=== PATIENT | male | born 1960 | race Caucasian/White ===

== ENCOUNTER 2017-03-15 12:10 | Emergency (ER) | payer OTHER ==
[~2017-03-15] VITALS: Ht 175.3 cm; Wt 79.3 kg
[2017-03-15 12:13] VITALS: TEMP 36.4; Ht 175.3 cm; Wt 79.3 kg
[2017-03-15] MEDS ORDERED: MoRPHine SULFATE 10 MG/ML CARP/VIAL IV STA ×2 (12:35→13:11)
[2017-03-15] MEDS ORDERED: ONDANSETRON INJ 2 MG/ML 2 ML VIAL IV STA (12:35)
[2017-03-15] MEDS ORDERED: SODIUM CHLORIDE 0.9% 1000ML 1,000 ML IV STA (12:35)
--- NOTE | 2017-03-15 12:43 | EMERGENCY ROOM VISIT NOTE ---
History Report prepared by Lisa: Whitley Ware Under the Supervision of: Dr. Elias Bundy M.D. First contact with patient: 12:30 Chief Complaint: KIDNEY STONE Stated Complaint: KIDNEY STONE History of Present Illness The patient is a 56 year old male who presents to the Emergency Room with complaints of sudden left-sided flank pain beginning this morning. He rates his pain at a 5/10. The patient states that he has had kidney stones before and that his symptoms today feel like one.The patient states that he has never had one on the left side before, but states that he had one on his right side 3 years ago. He denies having fevers, urinary burning, and rashes. He also denies a history of abdominal surgeries. Source of History: patient Onset: this morning Position: other (left-sided flank ) Symptom Intensity: rated at a 5/10 Timing: other (sudden ) Associated Symptoms: No fevers, No urinary symptoms (urinary burning ), No rash Review of Systems See HPI for pertinent positives & negatives. A total of 10 systems reviewed and were otherwise negative. Past Medical & Surgical Medical Problems: (1) Kidney stone Family History No pertinent family history stated. Social History Smoking Status: Never Smoker Occupation Status: employed Current/Historical Medications No Active Prescriptions or Reported Meds Allergies Coded Allergies: Penicillins (Unverified Adverse Reaction, Unknown, VOMITING, 03/15/17) Physical Exam Vital Signs Date Time Temp Pulse Resp B/P (MAP) Pulse Ox O2 Delivery O2 Flow Rate FiO2 03/15/17 14:25 51 18 130/91 95 03/15/17 13:07 52 16 141/81 98 Room Air 03/15/17 12:13 36.4 87 20 179/99 96 Room Air Physical Exam GENERAL: Patient is uncomfortable appearing and in moderate distress. HEENT: No acute trauma, normocephalic atraumatic, mucous membranes moist, no nasal congestion, no scleral icterus. NECK: No stridor, no adenopathy, no meningismus, trachea is midline. LUNGS: No dyspnea. Clear to auscultation and equal bilaterally. No wheeze, no rhonchi. HEART: Regular rate and rhythm. No murmurs, rubs, gallops appreciated. ABDOMEN: Soft, vague left lower quadrant tenderness to palpation, bowel sounds positive, no masses appreciated, no peritonitis. BACK: No midline tenderness, no CVA tenderness EXTREMITIES: Normal motion all extremities, no cyanosis, no edema. NEUROLOGIC: Alert and oriented, no acute motor or sensory deficits, no focal weakness, cranial nerves grossly intact. SKIN: No rash, no jaundice, no diaphoresis. Medical Decision & Procedures ER Provider Diagnostic Interpretation: Radiology results and stated below per my review and radiologist interpretation: ABD/PELVIS WITHOUT FOR STONE HISTORY: 56 years-old Male left flank pain acute left-sided flank pain. Initial exam. COMPARISON: None available TECHNIQUE: Multiple axial CT images of the abdomen and pelvis were obtained without the use of contrast. A dose lowering technique was used consistent with the principals of SWATHI. FINDINGS: Lung bases are clear. No pneumoperitoneum identified. Imaged inferior cardiac chambers are unremarkable. Diffuse fatty infiltration of the liver. No intrahepatic biliary ductal dilation. Minimal layering gallstones without evidence of acute cholecystitis. The spleen and adrenal glands are unremarkable. There is advanced inferior atrophy of the pancreas with fatty replacement. Mild nonspecific right perinephric infiltration with otherwise unremarkable. The right kidney and right ureter. Nonobstructing 6 x 5 mm calculus of the inferior pole left kidney. There is a circumscribed low attenuating 2.3 x 1.8 cm lesion of the lateral aspect interpolar left kidney suggesting renal cyst. There is moderate left-sided hydroureteronephrosis secondary to a 5 x 5 x 5 mm calculus of the mid left ureter at the level of the L4-L5 disc space. Urinary bladder is partially collapsed. Prostate is mildly prominent containing central coarse calcifications. There is asymmetric prominence with calcifications in the region of the left seminal vesicle. Mild atherosclerotic plaquing of the abdominal aorta. No bulky adenopathy. There is no bowel obstruction. A few scattered air-fluid levels are noted within nondilated bowel midabdomen, likely incidental. The majority of the large bowel is collapsed. A few scattered noninflamed colonic diverticula are noted. The appendix appears mildly prominent and its tip without evidence of acute appendicitis. Soft tissues are unremarkable. The bones appear intact. IMPRESSION: 1. Moderate left-sided hydroureteronephrosis secondary to a 5 x 5 x 5 mm calculus of the mid left ureter at the level of the L4-L5 disc space. Additionally, there is a 6 mm nonobstructing calculus of the inferior pole left kidney. 2. Cholelithiasis without CT evidence of acute cholecystitis. 3. Fatty infiltration of the liver. 4. Additional findings as above. The above report was generated using voice recognition software. It may contain grammatical, syntax or spelling errors. Electronically signed by: Jose Juan House M.D. 03/15/2017 1:31 PM Dictated Date/Time: 03/15/2017 1:23 PM Laboratory Results 03/15/17 12:30 Red Blood Count 5.56, Mean Corpuscular Volume 91.9, Mean Corpuscular Hemoglobin 31.8, Mean Corpuscular Hemoglobin Concent 34.6, Mean Platelet Volume 12.0, Neutrophils (%) (Auto) 78.2, Lymphocytes (%) (Auto) 13.4, Monocytes (%) (Auto) 8.1, Eosinophils (%) (Auto) 0.1, Basophils (%) (Auto) 0.1, Neutrophils # (Auto) 6.70, Lymphocytes # (Auto) 1.15, Monocytes # (Auto) 0.69, Eosinophils # (Auto) 0.01, Basophils # (Auto) 0.01 03/15/17 12:30 Test 03/15/17 12:30 White Blood Count 8.57 K/uL (4.8-10.8) Red Blood Count 5.56 M/uL (4.7-6.1) Hemoglobin 17.7 g/dL (14.0-18.0) Hematocrit 51.1 % (42-52) Mean Corpuscular Volume 91.9 fL (80-100) Mean Corpuscular Hemoglobin 31.8 pg (25-34) Mean Corpuscular Hemoglobin Concent 34.6 g/dl (32-36) Platelet Count 144 K/uL (130-400) Mean Platelet Volume 12.0 fL (7.4-10.4) Neutrophils (%) (Auto) 78.2 % Lymphocytes (%) (Auto) 13.4 % Monocytes (%) (Auto) 8.1 % Eosinophils (%) (Auto) 0.1 % Basophils (%) (Auto) 0.1 % Neutrophils # (Auto) 6.70 K/uL (1.4-6.5) Lymphocytes # (Auto) 1.15 K/uL (1.2-3.4) Monocytes # (Auto) 0.69 K/uL (0.11-0.59) Eosinophils # (Auto) 0.01 K/uL (0-0.5) Basophils # (Auto) 0.01 K/uL (0-0.2) RDW Standard Deviation 44.2 fL (36.4-46.3) RDW Coefficient of Variation 13.1 % (11.5-14.5) Immature Granulocyte % (Auto) 0.1 % Immature Granulocyte # (Auto) 0.01 K/uL (0.00-0.02) Urine Color DK YELLOW Urine Appearance CLOUDY (CLEAR) Urine pH 5.0 (4.5-7.5) Urine Specific [place] 1.027 (1.000-1.030) Urine Protein NEG (NEG) Urine Glucose (UA) NEG (NEG) Urine Ketones NEG (NEG) Urine Occult Blood 3+ (NEG) Urine Nitrite NEG (NEG) Urine Bilirubin NEG (NEG) Urine Urobilinogen NEG (NEG) Urine Leukocyte Esterase TRACE (NEG) Urine WBC (Auto) 1-5 /hpf (0-5) Urine RBC (Auto) 0-4 /hpf (0-4) Urine Hyaline Casts (Auto) /lpf (0-5) Urine Epithelial Cells (Auto) 0-5 /lpf (0-5) Urine Bacteria (Auto) NEG (NEG) Urine Crystals CALCIUM OXALATE (NONE Urine Mucus PRESENT (NONE PRSENT) Anion Gap 8.0 mmol/L (3-11) Est Creatinine Clear Calc Drug Dose 88.0 ml/min Estimated GFR () 103.4 Estimated GFR (Non- 89.3 BUN/Creatinine Ratio 13.9 (10-20) Calcium Level 8.5 mg/dl (8.5-10.1) Total Bilirubin 0.8 mg/dl (0.2-1) Direct Bilirubin 0.2 mg/dl (0-0.2) Aspartate Amino Transf (AST/SGOT) 28 U/L (15-37) Alanine Aminotransferase (ALT/SGPT) 58 U/L (12-78) Alkaline Phosphatase 103 U/L (45-117) Total Protein 7.6 gm/dl (6.4-8.2) Albumin 4.1 gm/dl (3.4-5.0) Lipase 36 U/L (73-393) Laboratory results as reviewed by me. Medications Administered Medications (Trade) Dose Ordered Sig/Michelle Route Start Time Stop Time Status Last Admin Dose Admin Sodium Chloride 1,000 ml @ 999 mls/hr Q1H1M STAT IV 03/15/17 12:35 03/15/17 13:35 DC 03/15/17 12:45 999 MLS/HR Ondansetron HCl (Zofran Inj) 4 mg NOW STAT IV 03/15/17 12:35 03/15/17 12:37 DC 03/15/17 12:46 4 MG Morphine Sulfate (MoRPHine SULFATE INJ) 8 mg NOW STAT IV 03/15/17 12:35 03/15/17 12:37 DC 03/15/17 12:46 8 MG Morphine Sulfate (MoRPHine SULFATE INJ) 10 mg NOW STAT IV 03/15/17 13:11 03/15/17 13:12 DC 03/15/17 13:15 10 MG Tamsulosin HCl (Flomax Cap) 0.4 mg NOW ONCE PO 03/15/17 14:00 03/15/17 14:01 DC 03/15/17 14:03 0.4 MG Hydromorphone HCl (Dilaudid Inj) 1 mg NOW STAT IV 03/15/17 13:49 03/15/17 13:50 DC 03/15/17 14:03 1 MG Ketorolac Tromethamine (Toradol Inj) 30 mg NOW STAT IV 03/15/17 14:04 03/15/17 14:05 DC 03/15/17 14:46 30 MG ED Course 1230: The patient was evaluated in room A4B. A complete history and physical exam was performed. 1235: Ordered Morphine Sulfate 8 mg IV, Ondansetron HCl 4 mg IV, Sodium Chloride 1,000 ml @ 999 mls/hr IV. 1311: Ordered Morphine Sulfate 10 mg IV. 1349: Ordered Dilaudid Inj 1 mg IV. 1350: The patient states that his pain is an 8/10 and that it is unbearable. He denies nausea. 1355: I discussed the patient's case with Dr. Shields. He is agreeable with 30 mg IV of Toradol. 1400: Ordered Tamsulosin HCl 0.4 mg PO. 1404: Ordered Toradol Inj 30 mg IV. 1430: The patient at first refused the Toradol and said that he wants to be admitted. Now he is agreeable to the Toradol. 1500: The patient is feeling better and would like to go home. 1503: Reevaluated the patient. Discussed results and discharge instructions: He verbalized understanding and agreement. The patient is ready for discharge. Medical Decision Differential: Renal Colic, Pyelonephritis, Hydronephrosis, Appendicitis, Diverticulitis, Retroperitoneal Bleed/Infection, Aortic Pathology, MSK, Neurologic Pathology, amongst other pathologies entertained. 56 yr old male with severe left flank pain for the previous few hours and periodic dry heaves. He is quite uncomfortable and thus IV narcotics initiated along with IV fluids. Labs OK and UA without infection. CT with moderate sized left mid ureteral stone with hydro. Requiring multiple rounds narcotics. Reviewed with Uro who agree with trialing Toradol in this patient. Patient feeling much improved and willing to try outpatient treatment. I discussed observation status which he would prefer to avoid. Patient stable and feeling better at discharge. Discussed risks/restrictions of narcotics. [place] Drug Monitoring Program Search Results: patient reviewed within database, no issues identified Medication Reconcilliation Current Medication List: was personally reviewed by me Blood Pressure Screening Patient's blood pressure: Elevated blood pressure Blood pressure disposition: Elevated BP felt to be situational Consults Time Called: 1350 Consulting Physician: Dr. Shields Returned Call: 1356 I discussed the patient's case with Dr. Shields. He is agreeable with 30 mg IV of Toradol. Impression Primary Impression: Left ureteral calculus Additional Impression: Hydronephrosis of left kidney Scribe Attestation The scribe's documentation has been prepared under my direction and personally reviewed by me in its entirety. I confirm that the note above accurately reflects all work, treatment, procedures, and medical decision making performed by me. Departure Information Dispostion Home / Self-Care Prescriptions No Active Prescriptions or Reported Meds Referrals Larry Shields MD Forms HOME CARE DOCUMENTATION FORM, IMPORTANT VISIT INFORMATION Patient Instructions Kidney Stones Expectant Therapy, My [facility] Additional Instructions You have received a narcotic pain medication prescription. These medications may cause drowsiness and should not be used with other sedative medications. Do not drive, drink alcohol, perform dangerous activities, nor make important decisions after taking these medications. terminologist use or inappropriate use may lead to addiction. Problem Qualifiers
[2017-03-15 12:51] LABS: URINE APPEARANCE CLOUDY (CLEAR); URINE BILIRUBIN NEG (NEG); URINE COLOR DK YELLOW; URINE EPITHELIAL CELL AUTO 0-5 /lpf (0-5); URINE NITRITE NEG (NEG); URINE SPECIFIC GRAVITY 1.027 (1.000-1.030); UROBILINOGEN NEG (NEG); ZZUR CULT IF INDIC CLEAN CATCH NO
[2017-03-15 12:57] LABS: BASO % 0.1 %; BASO ABS # 0.01 K/uL (0-0.2); COMPLETE YES; EOS % 0.1 %; HEMATOCRIT 51.1 % (42-52); IG% 0.1 %; LYMPH % 13.4 %; LYMPH ABS # 1.15 K/uL (1.2-3.4); MEAN CELL VOLUME 91.9 fL (80-100); MEAN CORPUSCULAR HEMOGLOBIN 31.8 pg (25-34); MEAN CORPUSCULAR HGB CONC 34.6 g/dl (32-36); MONO % 8.1 %; NEUT % 78.2 %; PLATELET COUNT 144 K/uL (130-400); RED BLOOD COUNT 5.56 M/uL (4.7-6.1); WHITE BLOOD COUNT 8.57 K/uL (4.8-10.8)
[2017-03-15 13:11] LABS: MANUAL MICROSCOPIC REQUIRED? NO; REVIEW REQ? YES
[2017-03-15 13:13] LABS: BUN/CREATININE RATIO 13.9 (10-20); CALCIUM 8.5 mg/dl (8.5-10.1); CREATININE 0.96 mg/dl (0.60-1.40); POTASSIUM 3.7 mmol/L (3.5-5.1)
--- NOTE | 2017-03-15 13:33 | DIAGNOSTIC IMAGING REPORT ---
ABD/PELVIS WITHOUT FOR STONE HISTORY: 56 years-old Male left flank pain acute left-sided flank pain. Initial exam. COMPARISON: None available TECHNIQUE: Multiple axial CT images of the abdomen and pelvis were obtained without the use of contrast. A dose lowering technique was used consistent with the principals of SWATHI. FINDINGS: Lung bases are clear. No pneumoperitoneum identified. Imaged inferior cardiac chambers are unremarkable. Diffuse fatty infiltration of the liver. No intrahepatic biliary ductal dilation. Minimal layering gallstones without evidence of acute cholecystitis. The spleen and adrenal glands are unremarkable. There is advanced inferior atrophy of the pancreas with fatty replacement. Mild nonspecific right perinephric infiltration with otherwise unremarkable. The right kidney and right ureter. Nonobstructing 6 x 5 mm calculus of the inferior pole left kidney. There is a circumscribed low attenuating 2.3 x 1.8 cm lesion of the lateral aspect interpolar left kidney suggesting renal cyst. There is moderate left-sided hydroureteronephrosis secondary to a 5 x 5 x 5 mm calculus of the mid left ureter at the level of the L4-L5 disc space. Urinary bladder is partially collapsed. Prostate is mildly prominent containing central coarse calcifications. There is asymmetric prominence with calcifications in the region of the left seminal vesicle. Mild atherosclerotic plaquing of the abdominal aorta. No bulky adenopathy. There is no bowel obstruction. A few scattered air-fluid levels are noted within nondilated bowel midabdomen, likely incidental. The majority of the large bowel is collapsed. A few scattered noninflamed colonic diverticula are noted. The appendix appears mildly prominent and its tip without evidence of acute appendicitis. Soft tissues are unremarkable. The bones appear intact. IMPRESSION: 1. Moderate left-sided hydroureteronephrosis secondary to a 5 x 5 x 5 mm calculus of the mid left ureter at the level of the L4-L5 disc space. Additionally, there is a 6 mm nonobstructing calculus of the inferior pole left kidney. 2. Cholelithiasis without CT evidence of acute cholecystitis. 3. Fatty infiltration of the liver. 4. Additional findings as above. The above report was generated using voice recognition software. It may contain grammatical, syntax or spelling errors. Electronically signed by: Jose Juan House M.D. 03/15/2017 1:31 PM Dictated Date/Time: 03/15/2017 1:23 PM
[2017-03-15] MEDS ORDERED: HYDROmorphone INJ 1 MG/ML SYR IV STA (13:49)
[2017-03-15] MEDS ORDERED: TAMSULOSIN HCL 0.4 MG CAP PO ONE (14:00)
[2017-03-15] MEDS ORDERED: KETOROLAC TROMETHAMINE 30 MG/ML VIAL IV STA (14:04)
[2017-03-15 14:53] LABS: URINE MUCUS PRESENT (NONE PRSENT)
[2017-03-15] MEDS ORDERED: TAMS0.4C38 PO (15:14)
[2017-03-15] MEDS ORDERED: OXYC1TAB3 PO (15:14)
[2017-03-15] MEDS ORDERED: ONDA4TAB10 SL (15:14)
[2017-03-15] MEDS ORDERED: OXYCODONE IR HOME PACK PO ONE (15:15)
[2017-03-15] MEDS ORDERED: ONDANSETRON HOME PACK 4MG OD TAB PO ONE (15:15)
[2017-03-15 15:23] VITALS: BP 132/87; PULSE 57; O2SAT 96
== END 2017-03-15 15:25 | disposition home or self-care (01) ==
LOC: C.EDB 12:13 → C.EDA 15:25
DX: N20.1 Calculus of ureter (principal); N13.30 Unspecified hydronephrosis; Z87.442 Personal history of urinary calculi

== ENCOUNTER 2017-03-24 21:05 | Emergency (ER) | payer OTHER ==
[~2017-03-24] VITALS: Ht 175.3 cm; Wt 78.4 kg
[~2017-03-24 21:05] MED LIST: ONDA4TAB10 SL; OXYC1TAB3 PO; TAMS0.4C38 PO
[2017-03-24 21:08] VITALS: TEMP 37; Ht 175.3 cm; Wt 78.4 kg
[2017-03-24] MEDS ORDERED: KETOROLAC TROMETHAMINE 30 MG/ML VIAL IV STA (21:17)
[2017-03-24] MEDS ORDERED: ONDANSETRON INJ 2 MG/ML 2 ML VIAL IV STA (21:17)
[2017-03-24] MEDS ORDERED: MoRPHine SULFATE 10 MG/ML CARP/VIAL IV STA (21:17)
[2017-03-24] MEDS ORDERED: HYDR-5688 PO (21:36)
[2017-03-24] MEDS ORDERED: PHEN-876 PO (21:36)
[2017-03-24] MEDS ORDERED: OXYC1TAB3 PO (21:37)
[2017-03-24 21:43] LABS: BASO % 0.1 %; BASO ABS # 0.01 K/uL (0-0.2); COMPLETE YES; EOS % 0.4 %; IG% 0.2 %; LYMPH % 13.3 %; LYMPH ABS # 1.31 K/uL (1.2-3.4); MEAN CELL VOLUME 91.2 fL (80-100); MEAN CORPUSCULAR HGB CONC 35.1 g/dl (32-36); MEAN PLATELET VOLUME 11.4 fL (7.4-10.4); MONO % 14.4 %; NEUT % 71.6 %; PLATELET COUNT 157 K/uL (130-400); RED BLOOD COUNT 5.37 M/uL (4.7-6.1); WHITE BLOOD COUNT 9.86 K/uL (4.8-10.8)
[2017-03-24 21:47] LABS: MANUAL MICROSCOPIC REQUIRED? YES; REVIEW REQ? NO; URINE APPEARANCE SLIGHTLY CLOUDY (CLEAR); URINE COLOR ORANGE
[2017-03-24 21:48] LABS: SULFASALICYLIC ACID NEG (NEG); URINE SPECIFIC GRAVITY 1.019 (1.000-1.030)
[2017-03-24 21:51] LABS: URINE BACTERIA 1+ (NEG); URINE MUCUS PRESENT (NONE PRSENT); URINE WHITE BLOOD CELL CAST 0-3 /lpf (0); ZZUR CULT IF INDIC CLEAN CATCH YES
[2017-03-24 22:12] LABS: BUN/CREATININE RATIO 11.3 (10-20); CALCIUM 8.6 mg/dl (8.5-10.1); CREATININE 2.03 mg/dl (0.60-1.40); POTASSIUM 4.3 mmol/L (3.5-5.1)
--- NOTE | 2017-03-24 22:18 | DIAGNOSTIC IMAGING REPORT ---
CT OF THE ABDOMEN AND PELVIS WITHOUT CONTRAST, STONE PROTOCOL CLINICAL HISTORY: Left flank pain and hematuria. Recent lithotripsy. COMPARISON STUDY: CT of the abdomen and pelvis March 15, 2017. TECHNIQUE: Helical axial images of the abdomen and pelvis were obtained without IV or oral contrast according to renal stone protocol. A dose lowering technique was utilized adhering to the principles of ALARA. FINDINGS: Moderate left hydroureteronephrosis is noted. A 4 mm calculus fragment at the left ureterovesical junction is noted. There is also a 3 mm fragment within the distal left ureter. Overall, the calculus burden is diminished since exam of March 15, 2017. This mild left perinephric infiltration. A water attenuation left renal lesion is suboptimally assessed on this unenhanced exam but this favors a cyst. There is marked fatty infiltration of the liver. Tiny gallstone is noted within the gallbladder. There is no pericholecystic infiltration. There is marked central atrophy of the pancreas. The appendix is mildly dilated without periappendiceal infiltration. The mid to distal aspect of the appendix appears fluid-filled. No lymphadenopathy is present within the abdomen or the pelvis. There are no suspicious osseous lesions. IMPRESSION: 1. Moderate left hydroureteronephrosis due to a 4 mm calculus fragment at the left ureterovesical junction. Additional 3 mm distal left ureteral calculus fragment. Overall, calculus burden diminished since exam of March 15, 2017 following lithotripsy. 2. Mildly dilated, fluid filled appendiceal tip without evidence of acute appendicitis. This may represent a normal finding however a mucocele or other appendiceal lesion could have this imaging appearance. A nonemergent surgical consultation is recommended. Electronically signed by: Lucien Roe M.D. 03/24/2017 10:17 PM Dictated Date/Time: 03/24/2017 10:05 PM
[2017-03-24] MEDS ORDERED: SODIUM CHLORIDE 0.9% 1000ML 1,000 ML IV STA (22:32)
[2017-03-24] MEDS ORDERED: CIPR-255 PO (22:41)
[2017-03-24] MEDS ORDERED: TAMS0.4C38 PO (22:41)
[2017-03-24] MEDS ORDERED: CIPROFLOXACIN 500 MG TAB PO STA (22:56)
[2017-03-24] MEDS ORDERED: MoRPHine SULFATE 4 MG/ML 1 ML CARP\\VIAL IV STA (23:16)
--- NOTE | 2017-03-24 23:28 | EMERGENCY ROOM VISIT NOTE ---
History First contact with patient: 21:11 Chief Complaint: FLANK PAIN Stated Complaint: LEFT KIDNEY PAIN- HX STONES History of Present Illness The patient is a 56 year old male who presents to the Emergency Room with complaints of severe left flank pain. The patient states that he had lithotripsy performed by Dr. Vieira on Thursday on 2 different stones one in the left ureter and 1 in the left kidney. The patient states at 3 PM today he developed this severe left flank pain with associated nausea and had one episode of vomiting. The patient also states that he has gross hematuria. He states there were little red chunks in his urine. The patient denies any dysuria, frequency or urgency. The patient has been taking his pain medication without any relief of the pain. He is also taking Flomax daily. He has not taken his oxybutynin for urinary spasms. The patient denies any fever. Review of Systems 10 system review was performed and was negative unless stated otherwise history of present illness. Past Medical/Surgical History Medical Problems: (1) Kidney stone Social History Smoking Status: Never Smoker Housing Status: lives with significant other Occupation Status: employed Current/Historical Medications Scheduled Ciprofloxacin Hcl (Cipro), 500 MG PO BID Tamsulosin Hcl (Flomax), 0.4 MG PO DAILY Tamsulosin Hcl (Flomax), 0.4 MG PO DAILY Scheduled PRN Hydrocodone/Acetaminophen 5MG/325MG (Starke 5MG/325MG), 1 TABLET PO Q6 PRN for Pain Oxycodone Immediate Rel Tab (Roxicodone Ir), 5 MG PO Q6H PRN for Pain Phenazopyridine HCl (Pyridium), 200 MG PO TID PRN for Bladder pain Physical Exam Vital Signs Date Time Temp Pulse Resp B/P (MAP) Pulse Ox O2 Delivery O2 Flow Rate FiO2 03/24/17 21:08 37.0 92 18 156/97 95 Room Air Physical Exam GENERAL: 56-year-old male appears uncomfortable secondary to flank pain. MENTAL Status: Alert and oriented 3. MOUTH: Mucosa is slightly dry. NECK: Supple, no lymphadenopathy noted. No carotid bruits noted. LUNGS: Clear auscultation without wheezes rales or rhonchi. CARDIAC: Regular rate and rhythm without murmur. Pulses is full and equal throughout. BACK: No CVA tenderness noted. ABDOMEN: Positive bowel sounds all 4 quadrants. Soft, tenderness palpation in the left lower quadrant otherwise nontender to palpation without organomegaly or masses. EXTREMITIES: No cyanosis or edema noted. Medical Decision & Procedures ER Provider Diagnostic Interpretation: CT OF THE ABDOMEN AND PELVIS WITHOUT CONTRAST, STONE PROTOCOL CLINICAL HISTORY: Left flank pain and hematuria. Recent lithotripsy. COMPARISON STUDY: CT of the abdomen and pelvis March 15, 2017. TECHNIQUE: Helical axial images of the abdomen and pelvis were obtained without IV or oral contrast according to renal stone protocol. A dose lowering technique was utilized adhering to the principles of ALARA. FINDINGS: Moderate left hydroureteronephrosis is noted. A 4 mm calculus fragment at the left ureterovesical junction is noted. There is also a 3 mm fragment within the distal left ureter. Overall, the calculus burden is diminished since exam of March 15, 2017. This mild left perinephric infiltration. A water attenuation left renal lesion is suboptimally assessed on this unenhanced exam but this favors a cyst. There is marked fatty infiltration of the liver. Tiny gallstone is noted within the gallbladder. There is no pericholecystic infiltration. There is marked central atrophy of the pancreas. The appendix is mildly dilated without periappendiceal infiltration. The mid to distal aspect of the appendix appears fluid-filled. No lymphadenopathy is present within the abdomen or the pelvis. There are no suspicious osseous lesions. IMPRESSION: 1. Moderate left hydroureteronephrosis due to a 4 mm calculus fragment at the left ureterovesical junction. Additional 3 mm distal left ureteral calculus fragment. Overall, calculus burden diminished since exam of March 15, 2017 following lithotripsy. 2. Mildly dilated, fluid filled appendiceal tip without evidence of acute appendicitis. This may represent a normal finding however a mucocele or other appendiceal lesion could have this imaging appearance. A nonemergent surgical consultation is recommended. Electronically signed by: Lucien Roe M.D. 03/24/2017 10:17 PM Dictated Date/Time: 03/24/2017 10:05 PM Laboratory Results 03/24/17 21:35 Red Blood Count 5.37, Mean Corpuscular Volume 91.2, Mean Corpuscular Hemoglobin 32.0, Mean Corpuscular Hemoglobin Concent 35.1, Mean Platelet Volume 11.4, Neutrophils (%) (Auto) 71.6, Lymphocytes (%) (Auto) 13.3, Monocytes (%) (Auto) 14.4, Eosinophils (%) (Auto) 0.4, Basophils (%) (Auto) 0.1, Neutrophils # (Auto ) 7.06, Lymphocytes # (Auto) 1.31, Monocytes # (Auto) 1.42, Eosinophils # (Auto ) 0.04, Basophils # (Auto) 0.01 03/24/17 21:35 Test 03/24/17 21:25 03/24/17 21:35 Urine Color ORANGE Urine Appearance SLIGHTLY CLOUDY (CLEAR) Urine pH (4.5-7.5) Urine Specific Stanley 1.019 (1.000-1.030) Urine Protein NEG (NEG) Urine Glucose (UA) (NEG) Urine Ketones (NEG) Urine Occult Blood (NEG) Urine Nitrite (NEG) Urine Bilirubin (NEG) Urine Urobilinogen (NEG) Urine Leukocyte Esterase (NEG) Urine RBC 5-10 /hpf (0-4) Urine WBC 10-30 /hpf (0-5) Urine Epithelial Cells 5-10 /lpf (0-5) Urine Bacteria 1+ (NEG) Urine White Blood Cell Casts 0-3 /lpf (0) Urine Mucus PRESENT (NONE PRSENT) White Blood Count 9.86 K/uL (4.8-10.8) Red Blood Count 5.37 M/uL (4.7-6.1) Hemoglobin 17.2 g/dL (14.0-18.0) Hematocrit 49.0 % (42-52) Mean Corpuscular Volume 91.2 fL (80-100) Mean Corpuscular Hemoglobin 32.0 pg (25-34) Mean Corpuscular Hemoglobin Concent 35.1 g/dl (32-36) Platelet Count 157 K/uL (130-400) Mean Platelet Volume 11.4 fL (7.4-10.4) Neutrophils (%) (Auto) 71.6 % Lymphocytes (%) (Auto) 13.3 % Monocytes (%) (Auto) 14.4 % Eosinophils (%) (Auto) 0.4 % Basophils (%) (Auto) 0.1 % Neutrophils # (Auto) 7.06 K/uL (1.4-6.5) Lymphocytes # (Auto) 1.31 K/uL (1.2-3.4) Monocytes # (Auto) 1.42 K/uL (0.11-0.59) Eosinophils # (Auto) 0.04 K/uL (0-0.5) Basophils # (Auto) 0.01 K/uL (0-0.2) RDW Standard Deviation 43.3 fL (36.4-46.3) RDW Coefficient of Variation 13.1 % (11.5-14.5) Immature Granulocyte % (Auto) 0.2 % Immature Granulocyte # (Auto) 0.02 K/uL (0.00-0.02) Anion Gap 7.0 mmol/L (3-11) Est Creatinine Clear Calc Drug Dose 41.6 ml/min Estimated GFR () 41.8 Estimated GFR (Non- 36.1 BUN/Creatinine Ratio 11.3 (10-20) Calcium Level 8.6 mg/dl (8.5-10.1) Medications Administered Medications (Trade) Dose Ordered Sig/Michelle Route Start Time Stop Time Status Last Admin Dose Admin Ketorolac Tromethamine (Toradol Inj) 30 mg NOW STAT IV 03/24/17 21:17 03/24/17 21:20 DC 03/24/17 21:34 30 MG Ondansetron HCl (Zofran Inj) 4 mg NOW STAT IV 03/24/17 21:17 03/24/17 21:20 DC 03/24/17 21:34 4 MG Morphine Sulfate (MoRPHine SULFATE INJ) 6 mg NOW STAT IV 03/24/17 21:17 03/24/17 21:20 DC 03/24/17 21:34 6 MG Sodium Chloride 1,000 ml @ 999 mls/hr Q1H1M STAT IV 03/24/17 22:32 03/24/17 23:32 03/24/17 22:32 999 MLS/HR ED Course The patient was evaluated. The patient's EMR and medication list were reviewed. On prior CAT scan revealed a 5 mm mid left ureteral calculi and a 6 mm left renal calculi. IV access was obtained. CBC and differential, renal profile was ordered. Urinalysis was ordered. The patient was given morphine 6 mg IV, Zofran 4 mg IV push and Toradol [address] stone study was ordered and interpreted by the radiologist as above with a 4 mm fragment noted at the left UV junction and a 3 mm fragment noted in the distal ureter. Labs are reviewed. White count was normal. BUN and creatinine were elevated therefore the patient was given 1 L normal saline wide-open. He now rated his pain at a 1 or 2 out of 10. Urinalysis showed evidence of infection. Culture is pending. The patient was given Cipro 500 mg by mouth while in the ER. The patient was reevaluated after receiving the saline. He stated that his pain was coming back therefore he was given morphine 4 mg IV before discharge. The patient was discharged home in stable condition with friends driving. Medical Decision Differential diagnosis include UTI, pyelonephritis, residual calculi fragments [place] Drug Monitoring Program Search Results: patient reviewed within database Medication Reconcilliation Current Medication List: was personally reviewed by me Blood Pressure Screening Patient's blood pressure: Elevated blood pressure Blood pressure disposition: Elevated BP felt to be situational Impression Primary Impression: Ureteral calculus, left Additional Impression: UTI (urinary tract infection) Departure Information Dispostion Home / Self-Care Condition GOOD Prescriptions Ciprofloxacin Hcl (CIPRO) 500 Mg Tab 500 MG PO BID for 10 Days, #20 TAB Prov: Suzanna De Santiago PA-C 03/24/17 Tamsulosin Hcl (FLOMAX) 0.4 Mg Cap 0.4 MG PO DAILY for 7 Days, #7 CAP Prov: Suzanna De Santiago PA-C 03/24/17 Referrals No Doctor, Assigned (PCP) Forms HOME CARE DOCUMENTATION FORM, IMPORTANT VISIT INFORMATION Patient Instructions ED UTI Cystitis Male, Kidney Stones - [facility] Additional Instructions Push fluids. Take Cipro as prescribed. Continue Flomax daily. Continue both the oxybutynin and the hydrocodone as needed for pain and muscle spasms. Do not drive while taking hydrocodone. Call Dr. Vieira tomorrow for follow-up appointment in 2-3 days. If you have any worsening of symptoms, return to ER immediately. Problem Qualifiers Additional Impression: UTI (urinary tract infection) Urinary tract infection type: acute cystitis Hematuria presence: with hematuria Qualified Codes: N30.01 - Acute cystitis with hematuria
[2017-03-24 23:40] VITALS: BP 143/87; PULSE 83; O2SAT 98
== END 2017-03-24 23:41 | disposition home or self-care (01) ==
LOC: C.EDB 21:06 → C.EDA 23:41
DX: N13.2 Hydronephrosis with renal and ureteral calculous obstruction (principal); N39.0 Urinary tract infection, site not specified; Z79.899 Other long term (current) drug therapy